=== PATIENT | female | born 1980 | race Hispanic/Latino ===

== ENCOUNTER 2020-09-05 08:35 | Outpatient (CLI) | payer BC, SELFPAY ==
--- NOTE | 2020-09-05 11:30 | NEURO_ITS ---
Impression: # Complains of right hand (1st, 2nd and 3rd fingers) numbness. # Not enough to make the electrical diagnosis of Carpal Tunnel Syndrome at this time. # No ulnar neuropathy. # Normal needle/EMG exam. # Clinical correlation recommended. Nerve Conduction Studies Anti Sensory Summary Table Stim Site NR Peak (ms) P-T Amp (?V) Site1 Site2 Delta-P (ms) Dist (cm) Magdy (m/s) Right Median Anti Sensory (2-3nd Digit) Wrist 3.0 91.2 Wrist 2-3nd Digit 3.0 14.0 47 Wrist 2.9 93.5 Wrist 2-3nd Digit 3.0 14.0 47 Right Radial Anti Sensory (Base 1st Digit) Wrist 2.4 5.7 Wrist Base 1st Digit 2.4 0.0 Right Ulnar Anti Sensory Run #2 (5th Digit) Wrist 2.4 62.2 Wrist 5th Digit 2.4 14.0 58 Motor Summary Table Stim Site NR Onset (ms) O-P Amp (mV) Site1 Site2 Delta-0 (ms) Dist (cm) Magdy (m/s) Right Median Motor (Abd Poll Brev) Wrist 3.0 2.5 Elbow Wrist 4.3 26.0 60 Elbow 7.3 7.4 Right Ulnar Motor (Abd Dig Minimi) Wrist 2.1 7.0 A Elbow Wrist 4.1 27.0 66 A Elbow 6.2 5.7 F Wave Studies NR F-Lat (ms) L-R F-Lat (ms) Right Median (Mrkrs) (Abd Poll Brev) 24.80 Right Ulnar (Mrkrs) (Abd Dig Min) 23.81 EMG Side Muscle Nerve Root Ins Act Fibs Amp Dur Recrt Comment Right 1stDorInt Ulnar C8-T1 Nml Nml Nml Nml Nml Right Ext Indicis Radial (Post Int) C7-8 Nml Nml Nml Nml Nml Right Ext Digitorum Radial (Post Int) C7-8 Nml Nml Nml Nml Nml Right BrachioRad Radial C5-6 Nml Nml Nml Nml Nml Right PronatorTeres Median C6-7 Nml Nml Nml Nml Nml Right Abd Poll Brev Median C8-T1 Nml Nml Nml Nml Nml MTDD
== END 2020-09-05 08:36 | disposition home or self-care (01) ==
DX: M75.121 Complete rotator cuff tear or rupture of right shoulder, not specified as traumatic (principal)
CPT/HCPCS: 95886; 95909

== ENCOUNTER 2021-07-01 17:08 | Emergency (ER) | payer BC, SELFPAY ==
[2021-07-01 17:15] VITALS: BP 131/63; PULSE 67; RESP 16; TEMP 36.2; O2SAT 100
--- NOTE | 2021-07-01 17:18 | ED.FEMALEGU ---
HPI - Female Genitourinary General Chief complaint: Urogenital-Female Stated complaint: UTI Time Seen by Provider: 07/01/21 17:20 Source: patient and RN notes reviewed Mode of arrival: ambulatory Limitations: no limitations History of Present Illness HPI Narrative: Amelia 40-year-old female patient who ambulated into the [facility] today with complaint of low abdominal pain and pressure with urination. Patient states she was treated on 06/25/2021 for UTI. She was given a 5-day course of Macrobid. Patient states no culture was sent. Patient states she did feel better for 1 to 2 days and then started having pressure to the left suprapubic area and left upper back. Patient use Pyridium 1 time during the course of. Patient denies any fever or chills. Patient denies any severe pain MD elicited complaint: dysuria Related Data Allergies Allergy/AdvReac Type Severity Reaction Status Date / Time No Known Allergies Allergy Verified 09/03/20 11:08 Review of Systems Review of Systems: CONSTITUTIONAL: Denies body aches, fever, chills, or sweats. EYES: Denies visual changes, redness, or discharge. ENT: Denies rhinorrhea, congestion, sore throat, or otalgia. CARDIOVASCULAR: Denies chest pain, palpitations, or edema. RESPIRATORY: Denies cough or dyspnea. GASTROINTESTINAL: Denies abdominal pain, nausea, vomiting, or diarrhea. GENITOURINARY: + dysuria denies hematuria. SKIN: Denies rash, itching, or wounds. MUSCULOSKELETAL: Denies back pain, joint pain, or myalgia. NEUROLOGIC: Denies headache, numbness, tingling, or weakness. PSYCH: Denies depression or anxiety. All systems reviewed & are unremarkable except as noted in HPI and below PMFSH Comments [] eye was anesthetized with 1 drop of tetracaine and anesthesia was achieved. The eye was flushed with eye wash. Lid was inverted and examined. Moistened Qtip was used to sweep underneath the upper eyelid with [] foreign bodies resulting. Cornea was dyed with fluorescein and [] abrasions or ulcerations were noted. Pt tolerated procedure well. Exam Narrative: GENERAL: Well-appearing, well-nourished, and in no acute distress. HEAD: Normocephalic, atraumatic. EYES: EOMI. No redness or drainage. Conjunctivae normal. ENT: Mucous membranes pink and moist. Nares clear. No rhinorrhea. TMs normal bilaterally. Throat normal. Uvula midline. NECK: Normal AROM. Supple. No lymphadenopathy. CHEST: No respiratory distress. . ABDOMEN: Soft, nontender, nondistended, normal active bowel sounds.pain elicited with deep palpation left suprapubic area, negative for CVA tenderness bilaterally. MUSCULOSKELETAL: No bony tenderness. EXTREMITIES: Normal range of motion. No edema. SKIN: Warm, dry, no rash. Capillary refill normal. Normal skin turgor. NEURO: No focal deficits. Alert and oriented x3. Gait steady. PSYCH: Normal affect. No signs of depression or anxiety. Course Vital Signs Vital signs: Vital Signs Temperature 36.2 C L 07/01/21 17:15 Pulse Rate 67 07/01/21 17:15 Respiratory Rate 16 07/01/21 17:15 Blood Pressure 131/63 07/01/21 17:15 Pulse Oximetry 100 07/01/21 17:15 Temperature 36.2 C L 07/01/21 17:15 Pulse Rate 67 07/01/21 17:15 Respiratory Rate 16 07/01/21 17:15 Blood Pressure 131/63 07/01/21 17:15 Pulse Oximetry 100 07/01/21 17:15 MDM - Female Genitourinary MDM Narrative Medical decision making narrative: Patient just finished a 5-day course of Macrobid on 06/30/2023. UA today shows 1+ blood and trace ketones. Was negative for nitrates and leukocytes. This urine will be sent out for culture. Patient denies any CVA tenderness with palpation. Patient has minimal pain with deep palpation on the left suprapubic area. Patient denies any vaginal discharge or discomfort Patient will be treated with for dysuria. She will be prescribed ibuprofen 800 mg 3 times daily. She was instructed that she may take Pyridium but not for more than 3 days. S
== END 2021-07-01 17:44 | disposition home or self-care (01) ==
PROVIDERS: Emergency Provider Nurse Practitioner Family
DX: R30.0 Dysuria (principal)
CPT/HCPCS: 81003; 87086; 87088; 99213; G0463

== ENCOUNTER 2022-06-06 10:37 | Emergency (ER) | payer BC, SELFPAY ==
--- NOTE | 2022-06-06 10:47 | ED.URI ---
HPI - URI/Sore Throat General Chief Complaint: Upper Respiratory Infection Stated Complaint: fever, cough, shortness of breath Time Seen by Provider: 06/06/22 10:47 Source: patient and RN notes reviewed Mode of arrival: ambulatory Limitations: no limitations History of Present Illness HPI Narrative: 41 y/o female presented for c/o sinus congestion and cough for 2 weeks. Endorses feeling better for a few days recently, but symptoms returned and worsened yesterday. Endorses more sinus congestion, drainage, and fatigue. Feels sob when taking deep breaths. Denies chest pain, wheezing, n/v/d/f/c. Took negative covid test yesterday and at onset of symptoms. Taking theraflu for symptoms. MD elicited complaint: cough Related Data Allergies Allergy/AdvReac Type Severity Reaction Status Date / Time No Known Allergies Allergy Verified 09/03/20 11:08 Review of Systems Review of Systems: CONSTITUTIONAL: denies malaise, chills, sweats, fever EYES: Denies visual changes, redness, or discharge ENT:per HPI CARDIOVASCULAR: Denies chest pain, palpitations, edema RESPIRATORY: Reports cough, post nasal drainage. Denies dyspnea GASTROINTESTINAL: Denies abdominal pain, nausea, vomiting, diarrhea SKIN: Denies rash or itching MUSCULOSKELETAL: denies myalgia Exam Narrative: GENERAL: Ill-appearing, nontoxic EYES: PERRLA, conjunctivae clear ENT: Mucous membranes moist. TMs pearly hartman with light reflex bilaterally; no tragal tenderness. Oropharynx erythematous without lesions or exudate, no drooling, no hoarseness, no trismus, uvula midline. NECK: Supple. No lymphadenopathy CHEST: Clear to auscultation, breath sounds equal. HEART: Regular rate and rhythm. No murmur heard. SKIN: Warm, dry, no rash. NEURO: Alert and oriented x3. Course Course Emergency Course: Patient is aware of diagnosis, understands and agrees to treatment plan. Anticipatory guidance given. Patient agrees to follow-up as directed and is aware of reasons to seek care at the emergency department. Portions of this record may have been created with voice recognition software Level of Care: Express Care Visit Vital Signs Vital signs: Vital Signs Temperature 97.8 F 06/06/22 10:50 Pulse Rate 81 06/06/22 10:50 Respiratory Rate 16 06/06/22 10:50 Blood Pressure 112/63 06/06/22 10:50 Pulse Oximetry 100 06/06/22 10:50 Temperature 97.8 F 06/06/22 10:50 Pulse Rate 81 06/06/22 10:50 Respiratory Rate 16 06/06/22 10:50 Blood Pressure 112/63 06/06/22 10:50 Pulse Oximetry 100 06/06/22 10:50 reviewed MDM - URI/Sore Throat MDM Narrative Medical decision making narrative: Rx reviewed, Advised supportive measures and signs/symptoms to go to the ER. Pt is appropriate for outpt treatment and f/u. Differential Diagnosis Differential diagnosis: Likely upper respiratory infection, sinusitis and viral infection Discharge Plan Discharge Clinical Impression: Upper respiratory infection Patient Disposition: Home, Self-Care Condition: Stable Instructions: Antibiotic Form, Sinusitis (ED) Additional Instructions: Take antibiotic as directed Recommend Flonase spray and Zyrtec or Mucinex over the counter Cough syrup may cause drowsiness; avoid driving or take it at night time. Tylenol 1000mg every 8 hours as needed for pain Symptomatic treatment includes: rest, increase fluids, and increase humidity of the air at home. Follow up with your primary care provider in 1 week. Go to the ER for worsening symptoms or concerns. Prescriptions: New amoxicillin-pot clavulanate 875-125 mg tablet 1 tablet PO Q12H 7 Days Qty: 14 0RF Follow-up/Referrals: UNKNOWN,DOCTOR [Primary Care Provider] - Time of Disposition: 10:53
[2022-06-06 10:50] VITALS: BP 112/63; PULSE 81; RESP 16; TEMP 36.6; O2SAT 100
== END 2022-06-06 10:58 | disposition home or self-care (01) ==
PROVIDERS: Emergency Provider Nurse Practitioner Family
DX: J06.9 Acute upper respiratory infection, unspecified (principal)
CPT/HCPCS: 99213; G0463

== ENCOUNTER 2023-08-20 08:47 | Emergency (ER) | payer BC, SELFPAY ==
--- NOTE | 2023-08-20 08:53 | ED.GENADULT ---
HPI - General Adult General Chief complaint: Upper Respiratory Infection Stated complaint: Cough;Shortness of breath Source: patient, RN notes reviewed and old records reviewed Mode of arrival: ambulatory Limitations: no limitations History of Present Illness HPI narrative: 42-year-old female presents to [facility] with complaints productive cough, sinus congestion, sinus pain this started approximately 1 week ago. Patient taking cdmg-src-xhnoxdr medications without relief patient states nasal discharge and phlegm production is thick and green. Patient denies weakness, dizziness, chest pain, shortness of breath. patient states took home COVID test was. complaint: Cough Onset (ago): day(s) (5-6) Related Data Allergies Allergy/AdvReac Type Severity Reaction Status Date / Time No Known Allergies Allergy Verified 08/20/23 08:54 Review of Systems Constitutional: Constitutional: Reports no additional constitutional complaints, Denies body ache(s), Denies chills, Denies fatigue, Denies fever(s) and Denies headache(s) Eyes: Eyes: Reports no additional eye complaints and Denies blurry vision ENT: Reports system reviewed and no additional complaints, except as documented, Denies vertigo, Denies dizziness, Denies ear discharge, Denies otalgia, Denies facial pain, Denies headache(s), Reports nasal congestion, Reports nasal discharge, Reports sinus pain, Reports sinus pressure and Denies sore throat Cardiovascular: Cardiovascular: Reports no additional cardiovascular complaints, Denies chest pain, Denies chest pain at rest, Denies rapid heart rate and Denies dyspnea Respiratory: Respiratory: Reports no additional respiratory complaints, Reports chest congestion, Reports cough, Denies pain on inspiration, Reports pain with cough and Denies dyspnea Gastrointestinal: Gastrointestinal: Denies abdominal pain, Denies diarrhea, Denies nausea and Denies vomiting Integumentary/Breasts: Skin/Breast: Denies rash Neurologic: Reports system reviewed and no additional complaints, except as documented, Denies vertigo, Denies dizziness and Denies headache(s) Endocrine: Endocrine: Denies fatigue PMF Past Medical History Medical History Encounter for gynecological examination Screening for breast cancer Surgical History Surgical History History of delivery History of laparotomy S/P right rotator cuff repair Family History Family History Grandparent Breast cancer Hypertension Diabetes mellitus Social History Social History Smoking status: Never smoker Alcohol intake: current Substance use: never Living arrangements: with family Occupation/Education: occupation Gender identity (if verbalized by the patient): Female Sexual Orientation (if Verbalized by the Patient): Straight or Heterosexual Comments At the time of my signature, I reviewed and agree with the nursing past medical, surgical, social, and family history. There is no relevant family history pertinent to the patient complaint. Exam Const: General: cooperative, healthy appearing, no acute distress and well nourished Nutritional Appearance: well nourished Orientation/consciousness: patient oriented x3 Limitations: no limitations HENMT: Head: normal to inspection and normocephalic Ears: external ears normal, TM's normal bilaterally, mastoids normal and Abnormal EAC present Face/Nose/Sinus: sinus tenderness and Facial tenderness on exam of face and sinuses Face and sinus: normal facial exam, no crepitus, sinus tenderness maxillary and No dry mucous membranes Mouth: Yes Normal oral and palatal mucosa present, Yes oropharynx normal and Yes moist mucous membranes Throat: tonsils normal, uvula midline and no uvular edema Eyes: G
[2023-08-20 08:58] VITALS: BP 116/73; PULSE 90; RESP 16; TEMP 36.6; O2SAT 100
== END 2023-08-20 09:19 | disposition home or self-care (01) ==
PROVIDERS: Emergency Provider Registered Nurse
DX: J01.90 Acute sinusitis, unspecified (principal); B96.89 Other specified bacterial agents as the cause of diseases classified elsewhere
CPT/HCPCS: 99203; G0463

== ENCOUNTER 2023-08-28 14:29 | Emergency (ER) | payer BC, SELFPAY ==
[2023-08-28 14:41] VITALS: BP 104/76; PULSE 80; RESP 16; TEMP 36.8; O2SAT 99
--- NOTE | 2023-08-28 15:01 | ED.URI ---
HPI - URI/Sore Throat General Chief Complaint: Upper Respiratory Infection Stated Complaint: Strep symptoms Source: patient, RN notes reviewed and old records reviewed Mode of arrival: ambulatory Limitations: no limitations History of Present Illness HPI Narrative: 42-year-old female patient presents to [facility] with complaints sore throat for 1-2 days. Patient states daughter as strep throat. Patient seen here on 08/01 for cough, sinus congestion and was treated for sinus infection with amoxicillin 875mg. Patient states most symptoms have improved but cough remains. MD elicited complaint: cough and sore throat Related Data Allergies Allergy/AdvReac Type Severity Reaction Status Date / Time No Known Allergies Allergy Verified 08/20/23 08:54 Review of Systems Constitutional: Constitutional: Reports no additional constitutional complaints, Denies body ache(s), Denies chills, Denies fatigue, Denies fever(s) and Denies headache(s) Eyes: Eyes: Reports no additional eye complaints and Denies blurry vision ENT: Reports system reviewed and no additional complaints, except as documented, Denies vertigo, Denies dizziness, Denies ear discharge, Denies otalgia, Denies facial pain, Denies headache(s), Denies nasal congestion, Denies nasal discharge, Denies sinus pain, Denies sinus pressure and Reports sore throat Cardiovascular: Cardiovascular: Reports no additional cardiovascular complaints, Denies chest pain, Denies chest pain at rest, Denies rapid heart rate and Denies dyspnea Respiratory: Respiratory: Reports no additional respiratory complaints, Denies chest congestion, Reports cough, Denies pain on inspiration, Denies pain with cough and Denies dyspnea Gastrointestinal: Gastrointestinal: Denies abdominal pain, Denies diarrhea, Denies nausea and Denies vomiting Integumentary/Breasts: Skin/Breast: Denies rash Neurologic: Reports system reviewed and no additional complaints, except as documented, Denies vertigo, Denies dizziness and Denies headache(s) Endocrine: Endocrine: Denies fatigue PMFSH Past Medical History Medical History Encounter for gynecological examination Screening for breast cancer Surgical History Surgical History History of delivery History of laparotomy S/P right rotator cuff repair Family History Family History Grandparent Breast cancer Hypertension Diabetes mellitus Social History Social History Smoking status: Never smoker Alcohol intake: current Substance use: never Living arrangements: with family Occupation/Education: occupation Gender identity (if verbalized by the patient): Female Sexual Orientation (if Verbalized by the Patient): Straight or Heterosexual Comments At the time of my signature, I reviewed and agree with the nursing past medical, surgical, social, and family history. There is no relevant family history pertinent to the patient complaint. Exam Const: General: cooperative, healthy appearing, no acute distress and well nourished Nutritional Appearance: well nourished Orientation/consciousness: patient oriented x3 Limitations: no limitations HENMT: Head: normal to inspection and normocephalic Ears: external ears normal, TM's normal bilaterally, mastoids normal and Abnormal EAC present Face/Nose/Sinus: normal facial exam Face and sinus: normal facial exam Mouth: Yes Normal oral and palatal mucosa present, Yes oropharynx normal and Yes moist mucous membranes Throat: tonsils normal, uvula midline, posterior oropharynx abnormal erythema ( mild) and no uvular edema Eyes: General: appearance normal, both eyes and all related structures Sclera: sclerae normal Pupils: Equal, round and reactive pupils present Resp: Effort & Ins
== END 2023-08-28 15:07 | disposition home or self-care (01) ==
PROVIDERS: Emergency Provider Registered Nurse
DX: J40 Bronchitis, not specified as acute or chronic (principal); J02.8 Acute pharyngitis due to other specified organisms
CPT/HCPCS: 87081; 87880; 99213; G0463